=== PATIENT | female | born 1940 | race Two or more races ===

== ENCOUNTER 2020-09-09 11:47 | Outpatient (CLI) | payer OTHER | END 2020-09-09 11:50 | disposition home or self-care (01) | LOC: SONOGRAMA 11:47 | PROVIDERS: ATTEND Pathology Anatomic Pathology & Clinical Pathology | DX: D34 Benign neoplasm of thyroid gland (principal); E04.1 Nontoxic single thyroid nodule; E04.8 Other specified nontoxic goiter ==

== ENCOUNTER 2023-02-07 06:00 | Day surgery (SDC) | payer OTHER ==
[~2023-02-07] VITALS: Ht 165.1 cm; Wt 43.1 kg
[~2023-02-07 06:00] MED LIST: ARICEPT23 MG PO; CHILDREN'S ASPI81 MG PO; CLONAZEPAM1 MG PO; LIPITOR20 MG PO; PROCARD; ZESTRIL20 MG PO; ZOLOFT100 MG PO
[2023-02-07] MEDS ORDERED: PERCOCET 5-3251 EACH PO (11:16)
== END 2023-02-07 17:30 | disposition home or self-care (01) ==
LOC: CIR.AMB 06:00
PROVIDERS: ATTEND Surgery
DX: D35.1 Benign neoplasm of parathyroid gland (principal); E21.0 Primary hyperparathyroidism; Z20.822 Contact with and (suspected) exposure to COVID-19; E03.8 Other specified hypothyroidism; I10 Essential (primary) hypertension